=== PATIENT | female | born 1980 | race Caucasian/White ===

== ENCOUNTER 2024-10-12 18:30 | Outpatient (CLI) | payer OTHER, SELFPAY | END 2024-10-12 18:31 | disposition home or self-care (01) | LOC: NFLDREF 10-13 07:00 | PROVIDERS: Visit Provider Physician Assistant | DX: R50.9 Fever, unspecified (principal); N39.0 Urinary tract infection, site not specified; R42 Dizziness and giddiness | CPT/HCPCS: 87086 ==